=== PATIENT | female | born 1990 | race African-American/Black ===

== ENCOUNTER 2019-10-14 23:36 | Emergency (ER) | payer MEDICAID, OTHER ==
[~2019-10-14] VITALS: Ht 160 cm; Wt 74.8 kg
[2019-10-14 23:56] VITALS: BP 132/89
[2019-10-15] MEDS ORDERED: KETOROLAC TROMETH 60MG/2ML VIAL IM ONE (01:30)
== END 2019-10-15 01:56 | disposition home or self-care (01) ==
LOC: ER 23:36
DX: S46.911A Strain of unspecified muscle, fascia and tendon at shoulder and upper arm level, right arm, initial encounter (principal); S05.12XA Contusion of eyeball and orbital tissues, left eye, initial encounter; Y04.0XXA Assault by unarmed brawl or fight, initial encounter; Y93.89 Activity, other specified; Y92.89 Other specified places as the place of occurrence of the external cause; Y99.8 Other external cause status
CPT/HCPCS: 70486; 73030; 96372; 99284; J1885